=== PATIENT | male | born 1970 | race Caucasian/White ===

== ENCOUNTER → 2016-09-08 | Outpatient (CLI) | payer OTHER ==
[~2016-09-08] MED LIST: CYCL1TAB29 PO; DICY10CA12 PO; GEMF600T PO; HYDR-3533 PO; KETO60IN6 IM; NORC5TAB PO; PANT40TA3 PO; ROBA750T PO; TEMA15CA PO; TRIA40P I-ARTICULR; TRIA40P IA
[2016-09-08 09:40] LABS: ANION GAP 8 MEQ/L (5-15); AST (GOT) 33 U/L (15-37); BICARBONATE 27.5 MEQ/L (21.0-32.0); BLOOD UREA NITROGEN 14 MG/DL (7-18); CHLORIDE 106 MEQ/L (98-107); GLOMERULAR FILTRATION RATE 80 ML/MIN (>89); GLUCOSE,FASTING 91 MG/DL (74-99); POTASSIUM 4.5 MEQ/L (3.5-5.1); SODIUM (NA) 141 MEQ/L (136-145)
[2016-09-08 09:45] LABS: ALKALINE PHOSPHATASE 80 U/L (45-117); ALT (GPT) 33 U/L (12-78); HDL CHOLESTEROL 45.5 MG/DL (40.0-60.0); LDL CHOLESTEROL 123 MG/DL (0-99); TOTAL BILIRUBIN ADULT 0.3 MG/DL (0.2-1.0)
== END ==
LOC: CLAB 08:39
PROVIDERS: ATTEND Family Medicine
DX: E78.1 Pure hyperglyceridemia (principal)
CPT/HCPCS: 36415; 80053; 80061

== ENCOUNTER 2016-09-26 10:45 | Emergency (ER) | payer OTHER ==
[~2016-09-26] VITALS: Ht 170.2 cm; Wt 90.5 kg
[~2016-09-26 10:45] MED LIST changes: -CYCL1TAB29 PO; -HYDR-3533 PO; -KETO60IN6 IM; -TRIA40P I-ARTICULR; -TRIA40P IA
[2016-09-26 10:47] VITALS: BP 128/92; PULSE 84; RESP 20; TEMP 97.4; O2SAT 97
[2016-09-26] MEDS ORDERED: HYDR-3533 PO (11:14)
[2016-09-26] MEDS ORDERED: ORPHENADRINE INJ 60 MG/2 ML AMP IM ONE (11:15)
[2016-09-26] MEDS ORDERED: KETOROLAC TROMETHAMINE 60 MG/2 ML (IM) VIAL IM ONE (11:15)
[2016-09-26] MEDS ORDERED: CYCL1TAB29 PO (11:26)
--- NOTE | 2016-09-26 11:27 | PD ---
HPI Chief Complaint: Back/ Neck Pain or Injury Time Seen by Provider: 11:16 Travel History International Travel<30 days: No Contact w/Intl Traveler<30days: No Traveled to known affect area: No History of Present Illness HPI 45 year old male presents to the emergency department for evaluation of right low back pain since yesterday. Patient states he bent down and has experienced the back pain. He denies a traumatic injury. No fevers. No loss of bowel or bladder control. No saddle anesthesias. Patient states he occasionally will drink alcohol. No tobacco or illegal drug use. Patient states that the pain is worse with movement and walking. He denies any weakness. No syncope. He states the pain does radiate to the right buttock, but does not radiate down the leg. Patient does report history of intermittent low back pain for several years. He has never had any imaging completed. He sees the family practice physicians at [place]. Patient reports history of high triglycerides, recent rotator cuff injury, GERD. Patient states that he is currently on Keflex and a Medrol Dosepak for sinus infection. He finishes the Medrol Dosepak tomorrow. Patient denies any other complaints at this time. Patient has not taken any [id number] medications for his pain. PFSH Past Medical History Hx Anticoagulant Therapy: No Cancer: No Cardiovascular Problems: No Chemotherapy: No Cerebrovascular Accident: No Diabetes: No GERD: Yes Insomnia: Yes Neurologic: Yes (EPILESPY A CHILD) Respiratory: No Seizures: Yes Past Surgical History AICD: No Joint Replacement: No Pacemaker: No Social History Alcohol Use: No Tobacco Use: No Substance Use: No Allergies-Medications (Allergen,Severity, Reaction): Coded Allergies: Naprosyn (Verified Allergy, Intermediate, Hives, 09/08/16) Reported Meds & Prescriptions Reported Meds & Active Scripts Active Lortab (Hydrocodone-Acetaminophen) 5-325 Mg Tab 1 Tab PO Q6H PRN Pantoprazole (Pantoprazole Sodium) 40 Mg Tab 40 Mg PO DAILY Gemfibrozil 600 Mg Tab 600 Mg PO BID Take 30 minutes prior to breakfast and dinner. [place] (Hydrocodone-Acetaminophen) 5-325 mg Tab 1 Tab PO Q6H PRN Robaxin (Methocarbamol) 750 Mg Tab 750 Mg PO QID Reported Temazepam 15 Mg Cap 15 Mg PO HS PRN Dicyclomine (Dicyclomine HCl) 10 Mg Cap 10 Mg PO BID PRN Review of Systems Except as stated in HPI: all other systems reviewed are Neg Physical Exam Narrative GENERAL: Well-developed well-nourished male patient, afebrile. SKIN: Warm and dry. HEAD: Normocephalic. Atraumatic. EYES: No scleral icterus. No injection or drainage. NECK: Supple, trachea midline. No JVD or lymphadenopathy. CARDIOVASCULAR: Regular rate and rhythm without murmurs, gallops, or rubs. Bilateral radial and pedal pulses 2+. RESPIRATORY: Breath sounds equal bilaterally. No accessory muscle use. Lungs sounds are clear to auscultation. GASTROINTESTINAL: Abdomen soft, non-tender, nondistended. MUSCULOSKELETAL: No cyanosis, or edema. Bilateral upper and lower extremity strength 5/5. All extremities are neurovascularly intact. BACK: No obvious deformity. No CVA tenderness. No midline spinal tenderness. Patient has tenderness over right lumbar paraspinal musculature. Straight leg raise is positive on the right side. No clonus. Data Data Last Documented VS Vital Signs Date Time Temp Pulse Resp B/P Pulse Ox O2 Delivery O2 Flow Rate FiO2 09/26/16 10:47 97.4 84 20 128/92 97 Room Air Orders Ketorolac Inj (Toradol Inj) (09/26/16 11:15) Orphenadrine Inj (Norflex Inj) (09/26/16 11:15) MDM Medical Decision Making Medical Screen Exam Complete: Yes Emergency Medical Condition: Yes Medical Record Reviewed: Yes Differential Diagnosis Muscle strain versus muscle spasm versus herniated disc versus sciatica Narrative Course 45-year-old male presents to the emergency department for evaluation of low back pain since yesterday after he bent down. No traumatic injury. No red flag symptoms. Patient is given Toradol 60 mg IM and Norflex 60 mg IM for pain. Patient does report a history of an allergy to naproxen, but states he can take other anti-inflammatories without issue including Mobic, ibuprofen. The patient will be discharged short-term prescription for Lortab for pain and Flexeril. He is encouraged to follow up with his primary care physician for possible imaging due to chronic, intermittent symptoms. The patient verbalizes agreement and understanding. He is to return for any acute worsening of symptoms. The patient was discharged in stable condition with instructions, including return instructions and follow up instructions. Diagnosis Primary Impression: Acute low back pain Qualified Code: M54.5 - Acute right-sided low back pain without sciatica Referrals: Primary Care Physician 2 days Patient Instructions: Acute Low Back Pain (ED), General Instructions Departure Forms: Tests/Procedures, Work Release Enter return to work date: Sep 30, 2016 Additional Instructions: Take Lortab as directed as needed for pain. Caution this can make you drowsy so do not drive after taking. Take Flexeril as directed as needed for muscle pain/spasm. Heating pad on low for 20 minutes 4-5 times daily. Follow-up with your primary care physician the next 2-3 days. Return to the emergency department for any acute worsening of symptoms. Med/Other Pt SpecificInfo: Prescription(s) given Scripts Cyclobenzaprine (Flexeril)10 Mg Tab10 Mg PO TID PRN (MUSCLE SPASM) #21 TAB Ref 0 Prov:Lary Contreras 09/26/16 Hydrocodone-Acetaminophen (Lortab)5-325 Mg Tab1 Tab PO Q6H PRN (PAIN) #12 TAB Ref 0 Prov:Desean Robertson MD 09/26/16 Disposition: 01 DISCHARGE HOME Condition: Stable Lary Contreras Sep 26, 2016 11:27
[2016-09-28] MEDS ORDERED: KETO60IN6 IM (10:08)
[2016-12-15] MEDS ORDERED: TRIA40P I-ARTICULR (15:16)
== END 2016-09-26 11:47 | disposition home or self-care (01) ==
LOC: NEPB 10:45
DX: M54.5 Low back pain (principal)
CPT/HCPCS: 96372; 99283; J1885; J2360